=== PATIENT | female | born 1975 | race Two or more races ===

== ENCOUNTER → 2025-01-11 | Outpatient (CLI) | payer MEDICAID, SELFPAY ==
--- NOTE | 2025-01-11 09:30 | XR_ITS ---
Examination: CT abdomen and pelvis without contrast. Coronal 3-D reconstructions. Sagittal 2-D reconstructions. Date and time of exam:January 11, 2025 0954 hours Comparison September 30, 2022 INDICATIONS: Bilateral flank pain beginning 4 months ago, history kidney stones CTDI: vol (mGy): 10.2 DLP: (mGycm): 560 Technique: Axial images of the abdomen have been obtained, 3 mm slice thickness Intravenous contrast material has not been administered. Low dose protocols were performed. One or more of the following dose reduction techniques were used; automated exposure control, adjustment of the mA and/or KV according to patient size, use of iterative reconstruction technique. Findings: No focal liver or splenic lesions, hepatomegaly 21 cm Absent gallbladder No pancreatic mass Moderate renal parenchymal scar formation 10 mm calculus lower pole right kidney No hydronephrosis or ureteral calculi Aorta normal size No bowel obstruction No pericecal inflammatory changes, normal appendix No diverticulitis No bladder mass or bladder calculi Moderate osteopenia IMPRESSION: 10 mm lower pole nonobstructing right renal calculus No hydronephrosis or ureteral calculi
[2025-01-11 09:37] LABS: HCG Qualitative,Urine Negative
== END | disposition home or self-care (01) ==
PROVIDERS: Referring Provider Surgery; Visit Provider Surgery
DX: N20.0 Calculus of kidney (principal); Z32.00 Encounter for pregnancy test, result unknown
CPT/HCPCS: 74176; 81025

== ENCOUNTER 2025-03-24 11:20 | Day surgery (SDC) | payer MEDICAID, SELFPAY ==
--- NOTE | 2025-03-23 10:56 | EKG_ITS ---
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
[2025-03-23 11:09] VITALS: BMI 32.8
[2025-03-23 11:29] LABS: Collection Type, Urine Clean Catch
[2025-03-23 12:41] LABS: Basophils # (Auto) 0.0 Thou/mm3 (0.0-0.2); Basophils % (Auto) 1 % (0-2.5); Eosinophils # (Auto) 0.1 Thou/mm3 (0.0-0.5); Eosinophils % (Auto) 2 % (0-10); Hematocrit 42.5 % (36.0-46.0); Hemoglobin 14.3 g/dL (12.0-16.0); Immature Granulocytes Auto 0.02 Thou/mm3 (0.00-0.00); Lymphocytes # (Auto) 2.3 Thou/mm3 (1.0-4.8); Lymphocytes % (Auto) 40 % (10-50); Mean Corpuscular HGB Conc 33.6 g/dl (31.0-37.0); Mean Corpuscular Hemoglobin 29.2 pg (25.0-35.0); Mean Corpuscular Volume 87 fL (80-100); Monocytes # (Auto) 0.3 Thou/mm3 (0.0-0.8); Monocytes % (Auto) 6 % (0-12); Neutrophils # (Auto) 3.0 Thou/mm3 (1.8-7.7); Neutrophils % (Auto) 52 % (37-80); Nucleated Red Blood Cell # 0.00 Thou/mm3 (0.00-0.00); Nucleated Red Blood Cell % 0 /100 WBC (0); Platelet Count 263 Thou/mm3 (140-440); RDW Standard Deviation 41.4 fL (36.4-46.3); Red Blood Count 4.90 Miln/mm3 (4.00-5.20); White Blood Count 5.7 Thou/mm3 (3.6-11.0)
[2025-03-23 12:42] LABS: Bilirubin,Urine Negative (Negative); Blood,Urine 1+ (Negative); Clarity,Urine Clear (Clear/Hazy); Color,Urine Lt-Yellow (Lt Yel-Yel); Glucose, Urine Negative (Negative); Ketones,Urine Negative (Negative); Leukocyte Esterase,Urine Positive (Negative); Nitrite,Urine Negative (Negative); PH,Urine 6.0 (5.0-7.0); Protein,Urine Trace (Neg - Trace); RBC,Urine 3 /hpf (0-3); Specific Gravity,Urine 1.030 (1.001-1.035); Squamous Epithelial Cell,Urine 6 /hpf (0-5); Urobilinogen,Urine Negative mg/dL (0.0-1.0); WBC,Urine 9 /hpf (0-5)
[2025-03-23 12:54] LABS: Alanine Aminotransferase 19 U/L (10-49); Albumin, Serum 4.7 gm/dL (3.5-5.0); Albumin/Globulin Ratio 1.8 (1.2-2.2); Alkaline Phosphatase 116 U/L (46-116); Anion Gap 8 (7-16); Aspartate Amino Transferase 19 U/L (0-34); BUN/Creatinine Ratio 19 Ratio (12-20); Bilirubin,Total 0.4 mg/dL (0.3-1.2); Blood Urea Nitrogen 13 mg/dL (9-23); Calcium 9.6 mg/dL (8.3-10.6); Calcium (Corrected) 9.6 mg/dL (8.5-10.1); Carbon Dioxide 26.9 mMol/L (20.0-31.0); Chloride 107 mMol/L (98-107); Creatinine (Component) 0.7 mg/dL (0.6-1.3); Estimated Creatinine Clearance 102.5 mL/min (>60); Globulin 2.6 gm/dL (2.3-3.5); Glucose 82 mg/dL (74-106); Osmolality,Calculated 282 (275-295); Potassium 4.0 mMol/L (3.4-5.1); Sodium 142 mMol/L (136-145); Total Protein 7.3 gm/dL (5.7-8.2); eGFR > 60 See Note
[2025-03-23 13:02] LABS: HCG,Qualitative Serum Negative
--- NOTE | 2025-03-23 13:36 | ESHP_ITS ---
RE: LOULUO MCQUEEN : 1975 DATE OF ADMISSION: 03/23/2025 HISTORY OF PRESENT ILLNESS: The patient is scheduled to have a right ESWL for the right renal stone. The patient is scheduled to have cystoscopy, right ureteral stent insertion, and right ESWL for the 10 mm stone in the right lower pole of the kidney. The patient does have a history of previous urinary calculi. PAST MEDICAL HISTORY: She has no history of diabetes mellitus or hypertension. PAST SURGICAL HISTORY: She had a cholecystectomy. The patient had ESWL done in 2020 and ESWL done in 2021. ALLERGIES: NONE KNOWN. PHYSICAL EXAMINATION: HEENT: Normal. NECK: Supple. LUNGS: Clear. CARDIOVASCULAR: Heart sounds are normal. ABDOMEN: Soft without any organomegaly. No guarding. No rigidity. EXTREMITIES: Extremities are normal. IMPRESSION: Right renal stone, 10 mm in size. PLAN: Cystoscopy, right ureteral stent insertion and ESWL for right lower pole renal stones. Planned procedure, risks and complications have been discussed with the patient. The patient has understood them and agreed to proceed. DT: 11:56:37 TT: 12:05:00 Ref: [id number] - TID: [id number]
[2025-03-24] VITALS (8 sets, daily range): BP systolic 118–143; BP diastolic 74–101; PULSE 76–107; RESP 14–141; TEMP 36.5–36.7; O2SAT 95–100; BMI 32.8
--- NOTE | 2025-03-24 06:00 | XR_ITS ---
Examination: Abdomen AP single view Technique: AP portable supine abdomen, single view Exam date and time: March 24, 2025, 1125 hours INDICATIONS: Preop lithotripsy today, history kidney stones FINDINGS: Right renal calculus 10 mm No ureteral calculi noted. Moderate stool throughout the colon IMPRESSION: 10 mm right renal calculus
--- NOTE | 2025-03-24 15:39 | SUR.OPER ---
Power:8 2500 1 min 45 sec
--- NOTE | 2025-03-24 15:53 | SUR.PHASEI ---
155 Patient arrived to recovery resting comfortably in [facility], on oxygen 10L via oxy mask, breathing unlabored, vital signs stable, denies pain and nausea, report received from Lucien LAWRENCE and Lynette KERR
--- NOTE | 2025-03-24 17:03 | SUR.PHASEII ---
1703 patient meets discharge criteria from recovery, awake and alert, breathing unlabored, vital signs stable, denies pain, eating ice chips; denies nausea, able to dress herself into her clothing, voided in the restroom prior to discharge, no stones noted, discharge instructions given to patient and patients son/mother, patient son signed discharge instructions. Patient given all her belongings prior to discharge, transported via wheelchair and left in a private vehicle.
--- NOTE | 2025-03-24 22:20 | ESOP_ITS ---
RE: LOULOU MCQUEEN : 1975 DATE OF OPERATION: 03/24/2025 PREOPERATIVE DIAGNOSIS: Right renal stone 10 mm in size. POSTOPERATIVE DIAGNOSIS: Right renal stone 10 mm in size. PROCEDURE PERFORMED: Cystoscopy with right ureteral stent insertion and ESWL for the right renal stone. ANESTHESIA: General by Babatunde LucienMELINDA. INDICATION: The patient is a 49-year-old female with a right renal stone. She has about 10 mm stone. She has been complaining of pain. She had x-ray done, which revealed a 10 mm right renal stone. She is now scheduled to have cystoscopy right ureteral stent insertion and ESWL for the right renal stone. Planned procedure, risks, and complications have been discussed with the patient. The patient understood them and agreed to proceed. DESCRIPTION OF PROCEDURE: After the patient was brought to the operating table under adequate general anesthesia and dorsal lithotomy position, parts were prepped and draped in the usual fashion. Cystoscopy was then carried out which revealed adequate urethral meatus, normal-appearing urethra. Residual urine 2 ounces, yellow and clear, and was sent for culture and sensitivity examination. There are no intravesical stones or tumors. Bladder mucosa is normal. Ureteral orifices are found to be normal in position and appearance. Open tip ureteral catheter was then introduced into the right ureteral orifice and was advanced all the way up to the right kidney and a guidewire was passed through the ureteral catheter all the way up to the right kidney. The stone was visualized. We were above the stone and then catheter was removed and a 6 [place] x 26 cm long stent was placed over the guidewire under C- arm fluoroscopy control so as the proximal loop of the stent is lying in the right kidney and the distal loop is in the bladder. Cystoscope was then removed. The patient was then placed on Dornier Delta III lithotripsy machine. Stone was visualized and this was broken with 2500 shocks, power level 8. The patient tolerated the entire procedure well and left the room in good condition. DT: 15:41:10 TT: 22:19:00 Ref: [id number] - TID: [id number]
== END 2025-03-24 17:03 | disposition home or self-care (01) ==
PROVIDERS: Anesthesiology; Referring Provider Surgery; Visit Provider Surgery
PROC: (CPT 50590; principal; 2025-03-24 13:15)
PROC: (CPT 52282; 2025-03-24 13:15)
DX: N20.0 Calculus of kidney (principal); Z01.810 Encounter for preprocedural cardiovascular examination; Z90.49 Acquired absence of other specified parts of digestive tract
CPT/HCPCS: 50590; 52332; 36415; 74018; 80048; 80053; 81001; 84703; 85025; 87086; 93005; A4217; A4649; C2617; J0131; J0694; J1885; J2250; J2704; J3010; J3490; J1596

== ENCOUNTER → 2025-04-10 | Outpatient (CLI) | payer MEDICAID, SELFPAY ==
--- NOTE | 2025-04-10 15:22 | XR_ITS ---
Examination: Abdomen AP single view Technique: AP portable supine abdomen, single view Exam date and time: April 10, 2025, 1531 hours INDICATIONS: History right kidney stones, status post ureteral stent placement, flank pain months FINDINGS: Right ureteral stent in satisfactory position Lower pole 10 mm right renal calculus Nonobstructive bowel gas pattern IMPRESSION: 10 mm lower pole right renal calculus
== END | disposition home or self-care (01) ==
LOC: CDIM 15:08
PROVIDERS: PCP Family Medicine; Referring Provider Surgery; Visit Provider Surgery
DX: N20.0 Calculus of kidney (principal)
CPT/HCPCS: 74018

== ENCOUNTER → 2025-05-17 | Outpatient (CLI) | payer MEDICAID, SELFPAY ==
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
== END | disposition home or self-care (01) ==
LOC: CDIM 15:14
PROVIDERS: PCP Family Medicine; Referring Provider Family Medicine; Visit Provider Family Medicine
DX: S89.92XA Unspecified injury of left lower leg, initial encounter (principal); V89.2XXA Person injured in unspecified motor-vehicle accident, traffic, initial encounter
CPT/HCPCS: 73562